=== PATIENT | male | born 1975 | race African-American/Black ===

== ENCOUNTER 2023-07-29 14:15 | Inpatient (IN) | payer OTHER ==
[2023-07-29 15:50] VITALS: BMI 23.0
[2023-07-29] MEDS ORDERED: cloNIDine HCL 0.1 MG TABLET PO ONE (17:42)
[2023-07-29] MEDS ORDERED: cloNIDine HCL 0.1 MG TABLET ONE (17:57)
[2023-07-29] MEDS ORDERED: ACETAMINOPHEN 325 MG TABLET (FP) PO PRN (18:04)
[2023-07-29] MEDS ORDERED: NALOXONE HCL (KLOXXADO) 8 MG SPRAY NS PRN (18:04)
[2023-07-29] MEDS ORDERED: BENZONATATE 200 MG CAPSULE PO PRN (18:04)
[2023-07-29] MEDS ORDERED: MAGNESIUM HYDROX 2400MG/30ML ORAL SUSPENSION 30 ML CUP PO PRN (18:04)
[2023-07-29] MEDS ORDERED: POLYETHYLENE GLYCOL (HEALTHYLAX) 3350 17 GM PACKET PO PRN (18:04)
[2023-07-29] MEDS ORDERED: BENZOCAINE/MENTHOL (CHLORASEPTIC ) LOZENGE MM PRN (18:04)
[2023-07-29] MEDS ORDERED: IBUPROFEN 600 MG TABLET (FP) PO PRN (18:04)
[2023-07-29] MEDS ORDERED: guaiFENesin 600 MG TABLET.ER (FP) PO PRN (18:04)
[2023-07-29] MEDS ORDERED: IBUPROFEN 400 MG TABLET (FP) PO PRN (18:04)
[2023-07-29] MEDS ORDERED: LOPERAMIDE HCL 2 MG CAPSULE PO PRN (18:04)
[2023-07-29] MEDS ORDERED: hydrOXYzine PAMOATE 25 MG CAPSULE (FP) PO PRN (18:04)
[2023-07-29] MEDS ORDERED: COLLOIDAL OATMEAL 1 BAR EACH TP PRN (18:04)
[2023-07-29] MEDS ORDERED: MAG HYDROX/AL HYDROX/SIMETH 30 ML UNIT-DOSE CUP PO PRN (18:04)
[2023-07-29] MEDS ORDERED: NALOXONE HCL 0.4 MG/ML VIAL IM PRN (18:04)
[2023-07-29] MEDS ORDERED: NICOTINE POLACRILEX 2 MG GUM BUC PRN (18:21)
[2023-07-29] MEDS: MELATONIN 5 MG TABLETS PO SCH (22:54)
[2023-07-29] MEDS: THIAMINE HCL 100 MG TABLET (FP) PO SCH (22:54)
[2023-07-30] MEDS ORDERED: TUBERCULIN PPD 5 TU/0.1ML VIAL ID ONE (09:08)
[2023-07-30] MEDS: NICOTINE 14 MG/24 HOURS TOPICAL PATCH TD SCH (10:09)
[2023-07-30] MEDS: PRENATAL VITAMINS W/ FOLIC ACID TABLET (FP) PO SCH (10:09)
[2023-07-30 11:43] LABS: CHLORIDE 103 mmol/L (98-107); POTASSIUM 3.8 mmol/L (3.5-5.1); SODIUM 142 mmol/L (136-145)
[2023-07-30 11:47] LABS: BLOOD UREA NITROGEN 4.9 mg/dL (7-18); CALCIUM 8.8 mg/dL (8.5-10.1)
[2023-07-30 11:48] LABS: ALBUMIN 2.8 g/dl (3.4-5.0); ANION GAP 9 mmol/L (4-13); CO2 31 mmol/L (21-32); GLUCOSE,RANDOM 114 mg/dL (74-106)
[2023-07-30 11:50] LABS: SGOT/AST 20 U/L (15-37)
[2023-07-30 11:51] LABS: CREATININE 0.7 mg/dL (0.55-1.3); HEMATOCRIT 37.8 % (35.4-49); HEMOGLOBIN 12.4 GM/dL (11.7-16.9); MCH 26.7 pg (25.7-33.7); MCHC 32.9 g/dl (32.0-35.9); MEAN PLT VOLUME 9.2 fl (7.5-11.1); PLATELET COUNT 392 10^3/uL (134-434); RBC 4.66 M/mm3 (4.00-5.60); SGPT/ALT 21 U/L (13-61)
[2023-07-30 11:52] LABS: BILIRUBIN,TOTAL 0.4 mg/dL (0.2-1); TOT PROT 6.8 g/dl (6.4-8.2)
[2023-07-30 11:53] LABS: ALK PHOS 70 U/L (45-117)
[2023-07-30] MEDS: BICTEGRAV/EMTRICIT/TENOFOV (BIKTARVY) 50-200-25 MG TABLET PO SCH (13:49)
[2023-07-30 15:07] LABS: URINE APPEARANCE CLEAR; URINE BILIRUBIN NEGATIVE (NEGATIVE); URINE COLOR YELLOW; URINE GLUCOSE (UA) NEGATIVE (NEGATIVE); URINE KETONE NEGATIVE (NEGATIVE); URINE LEUK ESTERASE NEGATIVE (NEGATIVE); URINE NITRITE NEGATIVE (NEGATIVE); URINE PROTEIN NEGATIVE (NEGATIVE)
[2023-07-30] MEDS ORDERED: ERGOCALCIFEROL (VIT D2) 50,000 UNIT (1.25 MG) CAPSULE PO SCH (16:00)
[2023-07-30] MEDS: MELATONIN 5 MG TABLETS PO SCH (21:39)
[2023-07-30] MEDS: THIAMINE HCL 100 MG TABLET (FP) PO SCH (21:39)
[2023-07-31 06:42] VITALS: RESP 20
[2023-07-31] MEDS: BICTEGRAV/EMTRICIT/TENOFOV (BIKTARVY) 50-200-25 MG TABLET PO SCH (07:03)
[2023-07-31] MEDS: PRENATAL VITAMINS W/ FOLIC ACID TABLET (FP) PO SCH (09:10)
[2023-07-31] MEDS: NICOTINE 14 MG/24 HOURS TOPICAL PATCH TD SCH (09:10)
[2023-07-31] MEDS: HYDROCHLOROTHIAZIDE 12.5 MG CAPSULE (FP) PO SCH (10:26)
[2023-07-31] MEDS ORDERED: cloNIDine HCL 0.1 MG TABLET PO ONE (12:14)
[2023-07-31] MEDS: THIAMINE HCL 100 MG TABLET (FP) PO SCH (21:14)
[2023-07-31] MEDS: MELATONIN 5 MG TABLETS PO SCH (21:14)
[2023-07-31] MEDS: cloNIDine HCL 0.1 MG TABLET PO SCH (21:14)
[2023-08-01 06:53] VITALS: TEMP 98.2
[2023-08-01] MEDS: BICTEGRAV/EMTRICIT/TENOFOV (BIKTARVY) 50-200-25 MG TABLET PO SCH (08:02)
[2023-08-01] MEDS: HYDROCHLOROTHIAZIDE 12.5 MG CAPSULE (FP) PO SCH (10:24)
[2023-08-01] MEDS: cloNIDine HCL 0.1 MG TABLET PO SCH (10:24)
[2023-08-01] MEDS: PRENATAL VITAMINS W/ FOLIC ACID TABLET (FP) PO SCH (10:24)
[2023-08-01] MEDS: NICOTINE 14 MG/24 HOURS TOPICAL PATCH TD SCH (10:24)
[2023-08-01 12:53] VITALS: BP 147/87; PULSE 73
== END 2023-08-01 16:02 | disposition left against medical advice (07) | DRG 770 ==
LOC: YASAS 14:15 → Y3E 22:19
PROVIDERS: ADMIT Allergy & Immunology; ATTEND Psychiatry & Neurology Pain Medicine
PROC: HZ42ZZZ Group Counseling for Substance Abuse Treatment, Cognitive-Behavioral (ICD-10-PCS; principal; 2023-07-29)
DX: F10.20 Alcohol dependence, uncomplicated (principal); F14.20 Cocaine dependence, uncomplicated; F17.210 Nicotine dependence, cigarettes, uncomplicated; Z21 Asymptomatic human immunodeficiency virus [HIV] infection status; I10 Essential (primary) hypertension; S72.001D Fracture of unspecified part of neck of right femur, subsequent encounter for closed fracture with routine healing; W19.XXXD Unspecified fall, subsequent encounter; Z98.890 Other specified postprocedural states
CPT/HCPCS: 36415; 80053; 80307; 81003; 81025; 85027; 86780; 87635; 87811

== ENCOUNTER 2024-11-03 20:36 | Inpatient (IN) | payer OTHER ==
[2024-11-03 21:05] VITALS: BMI 21.9
[2024-11-03] MEDS ORDERED: NICOTINE POLACRILEX 4 MG GUM BUC PRN (21:10)
[2024-11-03] MEDS ORDERED: BENZONATATE 200 MG CAPSULE PO PRN (21:10)
[2024-11-03] MEDS ORDERED: LOPERAMIDE HCL 2 MG CAPSULE PO PRN (21:10)
[2024-11-03] MEDS ORDERED: guaiFENesin 600 MG TABLET.ER (FP) PO PRN (21:10)
[2024-11-03] MEDS ORDERED: NALOXONE (NARCAN) HCL 4 MG/0.1 ML SPRAY NS PRN (21:10)
[2024-11-03] MEDS ORDERED: BENZOCAINE/MENTHOL (CHLORASEPTIC ) LOZENGE MM PRN (21:10)
[2024-11-03] MEDS ORDERED: MAGNESIUM HYDROX 2400MG/30ML ORAL SUSPENSION 30 ML CUP PO PRN (21:10)
[2024-11-03] MEDS ORDERED: ACETAMINOPHEN 325 MG TABLET (FP) PO PRN (21:10)
[2024-11-03] MEDS ORDERED: MAG HYDROX/AL HYDROX/SIMETH 30 ML UNIT-DOSE CUP PO PRN (21:10)
[2024-11-03] MEDS ORDERED: POLYETHYLENE GLYCOL (HEALTHYLAX) 3350 17 GM PACKET PO PRN (21:10)
[2024-11-03] MEDS ORDERED: MELATONIN 5 MG TABLETS ONE (22:07)
[2024-11-03] MEDS: MELATONIN 5 MG TABLETS PO SCH (22:11)
[2024-11-03] MEDS: THIAMINE 100 MG TABLET PO SCH (22:11)
[2024-11-04] MEDS ORDERED: TUBERCULIN PPD 5 TU/0.1ML SYRINGE (IN PATIENT USE ONLY) ID ONE (01:11)
[2024-11-04] MEDS: PRENATAL VITAMINS W/ FOLIC ACID TABLET (FP) PO SCH (10:03)
[2024-11-04] MEDS: NICOTINE 21 MG/24 HOURS TOPICAL PATCH TD SCH (10:03)
[2024-11-04] MEDS ORDERED: TUBERCULIN PPD 5 TU/0.1ML VIAL ID ONE (10:05)
[2024-11-04] MEDS: TUBERCULIN PPD 5 TU/0.1ML SYRINGE (IN PATIENT USE ONLY) ID ONE (10:06)
[2024-11-04 11:10] LABS: HEMOGLOBIN 11.9 GM/dL (11.7-16.9); MCH 27.3 pg (25.7-33.7); MCHC 32.2 g/dl (32.0-35.9); MEAN PLT VOLUME 10.2 fl (7.5-11.1); PLATELET COUNT 175 10^3/uL (134-434); RBC 4.35 M/mm3 (4.00-5.60); RDW 14.4 % (11.9-15.9); WHITE BLOOD COUNT 3.1 K/mm3 (4.0-10.0)
[2024-11-04 11:11] LABS: CHLORIDE 111 mmol/L (98-107); POTASSIUM 4.1 mmol/L (3.5-5.1); SODIUM 140 mmol/L (136-145)
[2024-11-04 11:19] LABS: CALCIUM 8.7 mg/dL (8.5-10.1)
[2024-11-04 11:20] LABS: ALBUMIN 3.4 g/dl (3.4-5.0); ANION GAP 7 mmol/L (4-13); BLOOD UREA NITROGEN 9.5 mg/dL (7-18); CO2 21 mmol/L (21-32); GLUCOSE,RANDOM 110 mg/dL (74-106)
[2024-11-04 11:23] LABS: CREATININE 0.9 mg/dL (0.55-1.3); SGOT/AST 31 U/L (15-37); SGPT/ALT 39 U/L (13-61)
[2024-11-04 11:24] LABS: BILIRUBIN,TOTAL 0.4 mg/dL (0.2-1); TOT PROT 7.5 g/dl (6.4-8.2)
[2024-11-04 11:26] LABS: ALK PHOS 75 U/L (45-117)
[2024-11-04 11:39] LABS: SYPHILIS W/ RPR CONF NON-REACTIVE (NONREACTIVE)
[2024-11-04 17:48] LABS: PH,URINE 5.5 (5.0-8.0); URINE APPEARANCE CLEAR; URINE BILIRUBIN NEGATIVE (NEGATIVE); URINE COLOR YELLOW; URINE GLUCOSE (UA) NEGATIVE (NEGATIVE); URINE KETONE NEGATIVE (NEGATIVE); URINE LEUK ESTERASE NEGATIVE (NEGATIVE); URINE NITRITE NEGATIVE (NEGATIVE); URINE PROTEIN NEGATIVE (NEGATIVE); URINE UROBILINOGEN 0.2 mg/dL (0.2-1.0)
[2024-11-04] MEDS: hydrOXYzine PAMOATE 25 MG CAPSULE (FP) PO PRN (21:29)
[2024-11-05] MEDS: IBUPROFEN 600 MG TABLET (FP) PO PRN (16:42)
[2024-11-07 06:41] VITALS: RESP 17
[2024-11-09] MEDS: IBUPROFEN 400 MG TABLET (FP) PO PRN (06:12)
[2024-11-09 07:15] VITALS: BP 149/83; PULSE 90; TEMP 97
== END 2024-11-09 15:24 | disposition home or self-care (01) | DRG 772 ==
LOC: YASAS 20:36 → Y3E 21:52
PROVIDERS: ADMIT Psychiatry & Neurology Pain Medicine; ATTEND Psychiatry & Neurology Pain Medicine
PROC: HZ42ZZZ Group Counseling for Substance Abuse Treatment, Cognitive-Behavioral (ICD-10-PCS; principal; 2024-11-03)
DX: F10.20 Alcohol dependence, uncomplicated (principal); F14.20 Cocaine dependence, uncomplicated; F12.20 Cannabis dependence, uncomplicated; F17.210 Nicotine dependence, cigarettes, uncomplicated; F41.9 Anxiety disorder, unspecified; Z21 Asymptomatic human immunodeficiency virus [HIV] infection status; I10 Essential (primary) hypertension; Z79.899 Other long term (current) drug therapy; Z88.0 Allergy status to penicillin
CPT/HCPCS: 36415; 80053; 80305; 80307; 81003; 85027; 86780; 86803; 87811; 93005; 93010

== ENCOUNTER 2025-02-15 09:15 | Inpatient (IN) | payer OTHER ==
[2025-02-15 09:42] VITALS: BMI 23.3
[2025-02-15] MEDS ORDERED: hydrOXYzine PAMOATE 25 MG CAPSULE (FP) PO PRN (09:53)
[2025-02-15] MEDS ORDERED: MAG HYDROX/AL HYDROX/SIMETH 30 ML UNIT-DOSE CUP PO PRN (09:53)
[2025-02-15] MEDS ORDERED: BENZONATATE 200 MG CAPSULE PO PRN (09:53)
[2025-02-15] MEDS ORDERED: guaiFENesin 600 MG TABLET.ER (FP) PO PRN (09:53)
[2025-02-15] MEDS ORDERED: LOPERAMIDE HCL 2 MG CAPSULE PO PRN (09:53)
[2025-02-15] MEDS ORDERED: NALOXONE (NARCAN) HCL 4 MG/0.1 ML SPRAY NS PRN (09:53)
[2025-02-15] MEDS ORDERED: BENZOCAINE/MENTHOL (CHLORASEPTIC ) LOZENGE MM PRN (09:53)
[2025-02-15] MEDS ORDERED: MAGNESIUM HYDROX 2400MG/30ML ORAL SUSPENSION 30 ML CUP PO PRN (09:53)
[2025-02-15] MEDS ORDERED: POLYETHYLENE GLYCOL (HEALTHYLAX) 3350 17 GM PACKET PO PRN (09:53)
[2025-02-15] MEDS ORDERED: NICOTINE POLACRILEX 2 MG GUM BUC PRN (09:55)
[2025-02-15] MEDS ORDERED: NICOTINE 14 MG/24 HOURS TOPICAL PATCH TD ONE (10:28)
[2025-02-15] MEDS: NICOTINE 14 MG/24 HOURS TOPICAL PATCH TD SCH (10:29)
[2025-02-15] MEDS: PRENATAL VITAMINS W/ FOLIC ACID TABLET (FP) PO SCH (10:30)
[2025-02-15] MEDS: amLODIPine BESYLATE 10 MG TABLET (FP) PO SCH (11:12)
[2025-02-15] MEDS: SULFAMETHOXAZOLE/TRIMETHOPRIM 800MG/160MG D.S. TABLET PO SCH (11:12)
[2025-02-15] MEDS: BICTEGRAV/EMTRICIT/TENOFOV (BIKTARVY) 50-200-25 MG TABLET PO SCH (11:13)
[2025-02-15] MEDS: THIAMINE 100 MG TABLET PO SCH (21:28)
[2025-02-15] MEDS: MELATONIN 5 MG TABLETS PO SCH (21:28)
[2025-02-16] MEDS: IBUPROFEN 600 MG TABLET (FP) PO PRN (05:15)
[2025-02-16 10:20] LABS: HEMATOCRIT 39.3 % (40.1-51.0); HEMOGLOBIN 12.2 g/dL (13.7-17.5); MEAN CELL VOLUME 86.8 fl (79.0-92.2); MEAN PLT VOLUME 11.9 fl (9.4-12.4); PLATELET COUNT 149 x10^3/uL (163-337); RDW 14.1 % (12.1-15.9)
[2025-02-16 11:40] LABS: SYPHILIS W/ RPR CONF NON-REACTIVE (NONREACTIVE)
[2025-02-16 12:09] LABS: HCV DIAGNOSTIC IN-HOUSE W/RFLX NON-REACTIVE (NONREACTIVE)
[2025-02-16 12:28] LABS: POTASSIUM 4.1 mmol/L (3.5-5.1)
[2025-02-16 12:40] LABS: ALBUMIN 3.6 g/dl (3.4-5.0); BLOOD UREA NITROGEN 8.9 mg/dL (7-18); CALCIUM 9.6 mg/dL (8.5-10.1)
[2025-02-16 12:44] LABS: BILIRUBIN,TOTAL 0.7 mg/dL (0.2-1); TOT PROT 7.5 g/dl (6.4-8.2)
[2025-02-16 13:51] LABS: URINE APPEARANCE CLEAR; URINE BILIRUBIN NEGATIVE (NEGATIVE); URINE COLOR YELLOW; URINE GLUCOSE (UA) NEGATIVE (NEGATIVE); URINE KETONE TRACE (NEGATIVE); URINE LEUK ESTERASE NEGATIVE (NEGATIVE); URINE NITRITE NEGATIVE (NEGATIVE); URINE PROTEIN TRACE (NEGATIVE)
[2025-02-18] MEDS: ACETAMINOPHEN 325 MG TABLET (FP) PO PRN (01:56)
[2025-02-19] MEDS: IBUPROFEN 400 MG TABLET (FP) PO PRN (18:26)
[2025-02-21 05:21] VITALS: RESP 16
[2025-02-22] MEDS ORDERED: NICOTINE POLACRILEX 4 MG LOZENGE BC PRN (12:19)
[2025-02-22] MEDS ORDERED: NICOTINE POLACRILEX 2 MG GUM BUC PRN (12:20)
[2025-02-22] MEDS: MIRTAZAPINE 15 MG TABLET (FP) PO SCH (21:23)
[2025-02-23 05:18] VITALS: TEMP 97.3
[2025-02-23 09:02] VITALS: BP 132/78; PULSE 99
[2025-02-23 12:08] LABS: INR 1.01 (0.83-1.09); PROTHROMBIN TIME (PATIENT) 11.1 SEC (9.7-13.0)
[2025-02-24] MEDS ORDERED: LACTULOSE 20 GM/30 ML UDC (FOR ORAL USE ONLY) PO SCH (14:00)
== END 2025-02-23 11:24 | disposition left against medical advice (07) | DRG 770 ==
LOC: YASAS 09:15 → Y3NR 10:23 → Y3W 02-16 11:06
PROVIDERS: ADMIT Psychiatry & Neurology Pain Medicine; ATTEND Allergy & Immunology
PROC: HZ42ZZZ Group Counseling for Substance Abuse Treatment, Cognitive-Behavioral (ICD-10-PCS; principal; 2025-02-15)
DX: F10.20 Alcohol dependence, uncomplicated (principal); F14.20 Cocaine dependence, uncomplicated; F12.20 Cannabis dependence, uncomplicated; F17.210 Nicotine dependence, cigarettes, uncomplicated; Z21 Asymptomatic human immunodeficiency virus [HIV] infection status; G47.00 Insomnia, unspecified; I10 Essential (primary) hypertension; L85.3 Xerosis cutis; Z88.0 Allergy status to penicillin
CPT/HCPCS: 36415; 80053; 80305; 81003; 82140; 82652; 83735; 85027; 85610; 86780; 86803; 87811; 93005; 93010